=== PATIENT | male | born 1930 | race Caucasian/White ===

== ENCOUNTER 2017-10-23 19:10 | Emergency (ER) | payer MEDICARE ==
[~2017-10-23] VITALS: Ht 160 cm; Wt 99.8 kg
[~2017-10-23 19:10] MED LIST: ACET325 PO; ASCO500 PO; CAND16; CAND16 PO; CENTRUM SILVER1 EAC2 PO; CHOL10002 PO; CLON.5; CLON.5 PO; Col-Rite100 MG PO; ENOX40I SC; FLUO10 PO; FLUO20; FLUO20 PO; FOLI1 PO; Fosamax70 MG PO; Glucosamine Ch1 EAC4 PO; HYDR1TAB94 PO; LANS15EC; LANS15EC PO; MECL25; NIAC500 PO; NIFE60ER; NIFE60ER PO; Norco 5-325 Ta1 EACH PO; OLME20 PO; Ocuvite Softge1 EAC1 PO; PIRO20; PIRO20 PO; ROSU10TA; ROSU5 PO; Slo-Niacin250 MG PO; TADA10TA PO; TAMS.4ER PO; TOCO400 PO; TRAZ50 PO; VITAMIN D-32000 UNIT PO; Valium5 MG PO; Vitamin E400 UNI4 PO; Z-QUIL PO
[2017-10-25 07:15] LABS: HCV Non Reactive (NR)
== END 2017-10-23 22:29 | disposition home or self-care (01) ==
LOC: ER 19:10
PROVIDERS: Physician Assistant
DX: S61.411A Laceration without foreign body of right hand, initial encounter (principal); W01.110A Fall on same level from slipping, tripping and stumbling with subsequent striking against sharp glass, initial encounter; Z91.041 Radiographic dye allergy status; Z79.899 Other long term (current) drug therapy; Z79.2 Long term (current) use of antibiotics; I10 Essential (primary) hypertension; K21.9 Gastro-esophageal reflux disease without esophagitis; J44.9 Chronic obstructive pulmonary disease, unspecified; Z87.891 Personal history of nicotine dependence
CPT/HCPCS: 12002; 73130; 84460; 86706; 86803; 87389; 99283

== ENCOUNTER 2019-03-06 11:34 | Day surgery (SDC) | payer MEDICARE ==
[~2019-03-06] VITALS: Ht 160 cm; Wt 85.4 kg
[~2019-03-06 11:34] MED LIST changes: +ALBU90OI6 INH; +B-121000 MC1 SL; +MIRT15 PO; +QVAR REDIHALE10.6 G1 INH
--- NOTE | 2019-03-06 13:36 | NUR ---
03/06/19 4326 Donell Kuo INJECTED 5MLS OF SPOT MARKER PER DR. HENLEY.
== END 2019-03-06 14:20 | disposition home or self-care (01) ==
LOC: ORSCSDS 11:34
PROVIDERS: Surgery
PROC: 0DBL8ZX Excision of Transverse Colon, Via Natural or Artificial Opening Endoscopic, Diagnostic (ICD-10-PCS; principal; 2019-03-06 13:00)
DX: D50.9 Iron deficiency anemia, unspecified (principal); C18.3 Malignant neoplasm of hepatic flexure; D12.3 Benign neoplasm of transverse colon; K57.30 Diverticulosis of large intestine without perforation or abscess without bleeding; Z86.010 Personal history of colon polyps; Z80.0 Family history of malignant neoplasm of digestive organs; I10 Essential (primary) hypertension; J44.9 Chronic obstructive pulmonary disease, unspecified; G47.33 Obstructive sleep apnea (adult) (pediatric); K21.9 Gastro-esophageal reflux disease without esophagitis; Z79.899 Other long term (current) drug therapy
CPT/HCPCS: 88305; J2405; J2704; J7120

== ENCOUNTER → 2019-04-17 | Outpatient (CLI) | payer MEDICARE ==
[2019-04-17 18:47] LABS: Adenovirus F 40/41 Not Detected (NOT DETECT); Astrovirus Not Detected (NOT DETECT); Campylobacter Sp Not Detected (NOT DETECT); Cryptosporidium Not Detected (NOT DETECT); Cyclospora Cayetanensis Not Detected (NOT DETECT); E. Coli O157 Not Detected (NOT DETECT); Entamoeba Histolytica Not Detected (NOT DETECT); Enteroaggregative E. coli-EAEC Not Detected (NOT DETECT); Enteropathogenic E. coli-EPEC Not Detected (NOT DETECT); Enterotoxigenic E. coli-ETEC Not Detected (NOT DETECT); Giardia Lamblia Not Detected (NOT DETECT); Norovirus GI/GII Not Detected (NOT DETECT); Plesiomonas Shigelloides Not Detected (NOT DETECT); Rotavirus A Not Detected (NOT DETECT); Salmonella Sp Not Detected (NOT DETECT); Sapovirus Not Detected (NOT DETECT); Shiga Toxin-prod E. coli-STEC Not Detected (NOT DETECT); Shigella/Enteroin E. coli-EIEC Not Detected (NOT DETECT); Vibrio Cholerae Not Detected (NOT DETECT); Vibrio Sp Not Detected (NOT DETECT); Yersinia Enterocolitica Not Detected (NOT DETECT)
== END | disposition home or self-care (01) ==
LOC: LAB 16:28 → LAB SHORT 16:28 → LAB FUT 04-17 15:10
PROVIDERS: Internal Medicine
DX: R19.7 Diarrhea, unspecified (principal)
CPT/HCPCS: 0097U

== ENCOUNTER 2020-06-19 09:57 | Day surgery (SDC) | payer MEDICARE ==
[~2020-06-19] VITALS: Ht 160 cm; Wt 82.5 kg
== END 2020-06-19 12:00 | disposition home or self-care (01) ==
LOC: ORSCSDS 09:57
PROVIDERS: Surgery
PROC: 0DJD8ZZ Inspection of Lower Intestinal Tract, Via Natural or Artificial Opening Endoscopic (ICD-10-PCS; principal; 2020-06-19 11:15)
DX: Z85.038 Personal history of other malignant neoplasm of large intestine (principal); G47.33 Obstructive sleep apnea (adult) (pediatric); K57.30 Diverticulosis of large intestine without perforation or abscess without bleeding; I10 Essential (primary) hypertension; Z99.81 Dependence on supplemental oxygen; J44.9 Chronic obstructive pulmonary disease, unspecified; Z68.32 Body mass index [BMI] 32.0-32.9, adult; E66.9 Obesity, unspecified; Z87.891 Personal history of nicotine dependence; Z79.899 Other long term (current) drug therapy
CPT/HCPCS: J2704; J7120